=== PATIENT | male | born 1995 | race Caucasian/White ===

== ENCOUNTER 2017-10-10 06:06 | Day surgery (SDC) | payer BC ==
[2017-10-10] MEDS ORDERED: Ketamine HCl 50 MG/ML IV ONE (06:07)
[2017-10-10] MEDS ORDERED: DIPRIVAN 200 MG/20 ML IV ONE (06:07)
[2017-10-10] MEDS ORDERED: Lactated Ringers 1,000 ML IV SCH (06:30)
[2017-10-10] MEDS ORDERED: Lactated Ringers 1,000 ML IV ONE (07:51)
[2017-10-10 08:36] VITALS: O2SAT 100
[2017-10-10 09:03] VITALS: BP 130/61; PULSE 71
--- NOTE | 2017-10-10 10:47 | OP ---
SURGERY DATE/TIME: 10/10/2017729 PREOPERATIVE DIAGNOSIS: Rectal bleeding and diarrhea. POSTOPERATIVE DIAGNOSIS: 1) Normal EGD. 2) Colitis. PROCEDURES: 1) Esophagogastroduodenoscopy. 2) Colonoscopy with biopsy. SURGEON: Dr. Bah. ANESTHESIA: Medications were given by the anesthesia department. BRIEF HISTORY: The patient is a 21 year old white male patient with hemoglobin of 9.0. He reports he has been having problems with rectal bleeding off and on over the past few weeks along with diarrhea. He reports he is having bowel movements each times he eats and some blood each time he has a bowel movement. The patient was felt the need to have endoscopic evaluation. He was appraised of the risks of the procedure including the risk of perforation, phlebitis, untoward reaction to medication, bleeding and missed lesions. The patient verbalized his understanding and desired to have the procedure performed. DESCRIPTION OF PROCEDURE: The patient was given the medications by the anesthesia department. He had continuous pulse oximetry, ECG monitoring, intermittent blood pressure monitoring and tidal CO2 monitoring during the examination. He was placed in the left lateral decubitus position. A bite block was placed and the flexible Olympus gastroscope was used to intubate the oropharynx. A view of the larynx was obtained and was normal. The scope was easily introduced in the esophagus which was normal throughout its length. The stomach was entered where normal gastric rugal folds were seen and these distended nicely with insufflation of air. The scope was passed along the greater curvature of the stomach to the antrum. The pylorus encountered and intubated. Duodenum inspected and found to be normal. The scope was withdrawn towards the stomach. A retroflex view was obtained of the lesser curvature, fundus and cardia regions of the stomach and these normal as well. The scope was removed from the patient. Next, a digital rectal exam was performed and revealed normal anal sphincter tone and no masses. No hemorrhoids. No fissure. Normal prostate. The flexible Olympus pediatric colonoscope was used to intubate the rectum. A view of the colon was developed sequentially to the cecum including a short distance in the terminal ileum. Upon evaluation the rectum and lower sigmoid area appeared to be normal. At approximately 30 cm depth insertion we began running into areas of inflammation. It was more significantly noted from approximately 48 cm to approximately the ascending colon where things began become normal again. The interceding section was inflamed with patchy areas of mucous and inflammatory process. The scope was introduced into the terminal ileum which appeared to be normal. The scope was then withdrawn from the patient with biopsies to intervals throughout the colon to document the presence of inflammatory bowel disease. There was also noted a small sample sent off for Clostridium difficile infection as well.
[2017-10-10 11:25] LABS: 027 TOX PROD PRESUMPTIVE NEGATIVE (NEGATIVE); TOXIGENIC C. DIFF ORG NEGATIVE (NEGATIVE)
== END 2017-10-10 09:08 | disposition home or self-care (01) ==
LOC: SDC 06:06
PROVIDERS: ATTEND Family Medicine
DX: K62.5 Hemorrhage of anus and rectum (principal); K52.9 Noninfective gastroenteritis and colitis, unspecified
CPT/HCPCS: 87493; 88305; J2704